=== PATIENT | female | born 1985 ===

== ENCOUNTER 2017-06-19 17:59 | Emergency (ER) | payer MEDICAID ==
[2017-06-19 18:49] VITALS: BMI 24.4
[2017-06-19 18:50] VITALS: TEMP 98.3
--- NOTE | 2017-06-19 20:07 | ED PDOC ---
Arrival/HPI - General Chief Complaint: Chest Pain Time Seen by Provider: 06/19/17 19:02 Historian: Patient - History of Present Illness Narrative History of Present Illness (Text): 06/19/17 19:52 32-year-old female with no past medical history presents today with a 2 day history of left-sided chest pain worse with deep inspiration. Patient states 4 days ago she returned from [place] and felt as if she was coming down with a cold. Patient states she had a slight sore throat and felt like she had chills. Patient states yesterday she developed a tightness in the left side of the chest that is nonradiating. Patient states the pain is worse with deep inspiration and with movement of the left arm. She denies dizziness or weakness. Denies headaches or blurred vision. Denies back pain. Denies abdominal pain. No nausea or vomiting. Patient denies a smoking history. Denies calf pain. pt denies cough. No other complaints. Time/Duration: Other (2 days) Past Medical History - Provider Review Nursing Documentation Reviewed: Yes - Travel History Have you recently traveled outside [place] w/in the past 3 mons?: No - Tetanus Immunization Tetanus Immunization: Unknown - Cardiac Hx Cardiac Disorders: No - Pulmonary Hx Respiratory Disorders: No - Neurological Hx Neurological Disorder: No - HEENT Hx HEENT Disorder: No - Renal Hx Renal Disorder: No - Endocrine/Metabolic Hx Hypothyroidism: Yes - Hematological/Oncological Hx Blood Disorders: No - Integumentary Hx Dermatological Disorder: No - Musculoskeletal/Rheumatological Hx Musculoskeletal Disorders: No - Gastrointestinal Hx Gastrointestinal Disorders: No - Genitourinary/Gynecological Hx Genitourinary Disorders: No - Psychiatric Hx Psychophysiologic Disorder: No Hx Anxiety: No Hx Substance Use: No - Surgical History Hx Section: Yes Family/Social History - Physician Review Nursing Documentation Reviewed: Yes Family/Social History: Unknown Family HX Smoking Status: Never Smoked Hx Alcohol Use: No Hx Substance Use: No Allergies/Home Meds Allergies/Adverse Reactions: Allergies No Known Allergies Allergy (Verified 06/19/17 18:50) Review of Systems - Review of Systems Constitutional: absent: Fatigue, Fevers ENT: Sore Throat, Sinus Congestion Respiratory: absent: SOB, Cough Cardiovascular: Chest Pain. absent: Palpitations Gastrointestinal: absent: Abdominal Pain, Nausea, Vomiting Genitourinary Female: absent: Dysuria Musculoskeletal: absent: Arthralgias Skin: absent: Rash, Pruritis Neurological: absent: Headache, Dizziness Psychiatric: absent: Anxiety, Depression Physical Exam Vital Signs Reviewed: Yes Vital Signs Temp Pulse Pulse Resp BP Pulse Ox 06/20/17 00:04 19 98 06/19/17 23:31 82 19 127/70 99 06/19/17 18:54 80 06/19/17 18:51 98.3 F 83 18 124/73 97 06/19/17 18:49 98.3 F 85 18 124/73 99 Temperature: Afebrile Blood Pressure: Normal Pulse: Regular Respiratory Rate: Normal Appearance: Positive for: Well-Appearing, Non-Toxic, Comfortable Pain Distress: None Mental Status: Positive for: Alert and Oriented X 3 - Systems Exam Head: Present: Atraumatic Conjunctiva: Present: Normal Ears: Present: Normal, NORMAL TM Mouth: Present: Moist Mucous Membranes. No: Drooling, Trismus, Normal Tounge, Normal Teeth Pharnyx: Present: Normal. No: ERYTHEMA, EXUDATE, TONSILS ENLARGED, Peritonsilar Swelling, Uvular Deviation, Muffled/Hoarse Voice Nose (External): Present: Atraumatic Nose (Internal): Present: Normal Inspection Neck: Present: Normal Range of Motion Respiratory/Chest: Present: Clear to Auscultation, Good Air Exchange, Tender to Palpation (+ ttp over anterior left chest wall; no edema, no erythema; no ecchymosis; no step offs or crepitus. ). No: Respiratory Distress, Accessory Muscle Use Cardiovascular: Present: Regular Rate and Rhythm, Normal S1, S2. No: Murmurs Abdomen: No: Tenderness, Distention, Rebound, Guarding Back: Present: Normal Inspection. No: CVA Tenderness, Midline Tenderness Upper Extremity: Present: Normal Inspection, Normal ROM Lower Extremity: Present: Normal Inspection, Normal ROM Neurological: Present: GCS=15 Skin: Present: Warm, Dry, Normal Color. No: Rashes Psychiatric: Present: Alert, Oriented x 3 Medical Decision Making ED Course and Treatment: 06/19/17 21:19 pt with palpable chest pain x 2 days. with uri symptoms. cbc; wnl cmp; wnl trop: wnl d dimer; wnl ekg; normal sinus rhythm at 75 bpm normal axis normal intervals no ST elevations cxr; no infiltrate, no effusion, no cardiomegaly rapid flu; negative pt given toradol for pain; pt reassessment; after toradol patient denies any pain; no sob. I discussed the results in depth with the patient stressed importance of follow- up with her primary care physician tomorrow. Advised follow-up with the plaster mechanic. Advised to immediately return if symptoms worsen or persist or if new concerning symptoms develop Patient verbalizes understanding of discharge instructions and need for immediate followup. all aspects of this case were discussed the attending of record. impression; chest pain, flu like symptoms increase fluids motrin every 6 hours as needed for pain/fever reduction tamiflu twice daily x 5 day follow up with the primary care physician tomorrow. Follow up with the plaster mechanic within the next 2 days. return if symptoms worsen,persist or if new symptoms develop. - Lab Interpretations Lab Results: 06/19/17 21:07 06/19/17 21:07 Lab Results 06/19/17 21:07: Urine Color Yellow, Urine Appearance Clear, Urine pH 7.5, Ur Specific [place] 1.020, Urine Protein Negative, Urine Glucose (UA) Negative, Urine Ketones Negative, Urine Blood Negative, Urine Nitrate Negative, Urine Bilirubin Negative, Urine Urobilinogen 0.2, Ur Leukocyte Esterase Negative 06/19/17 21:07: D-Dimer, Quantitative < 200 06/19/17 21:07: Influenza Typ A,B (EIA) Negative for flu a/b 06/19/17 21:07: WBC 8.3, RBC 4.21, Hgb 12.4, Hct 37.6, MCV 89.3, MCH 29.5, MCHC 33.0, RDW 13.7, Plt Count 318, MPV 11.8 H, Gran % 53.8, Lymph % (Auto) 33.7, [place] % (Auto) 10.4 H, Eos % (Auto) 1.9, Baso % (Auto) 0.2, Gran # 4.44, Lymph # (Auto) 2.8, [place] # (Auto) 0.9 H, Eos # (Auto) 0.2, Baso # (Auto) 0.02 06/19/17 21:07: Sodium 143, Potassium 4.4, Chloride 107, Carbon Dioxide 26, Anion Gap 14, BUN 10, Creatinine 0.7, Est GFR ( Amer) > 60, Est GFR (Non- Af Amer) > 60, Random Glucose 85, Calcium 9.4, Total Bilirubin 0.1 L, AST 45 H, ALT 57 H, Alkaline Phosphatase 95, Lactate Dehydrogenase 417, Total Creatine Kinase 88, Troponin I < 0.01, Total Protein 7.0, Albumin 3.9, Globulin 3.1, Albumin/Globulin Ratio 1.3 - RAD Interpretation Radiology Orders: 06/19/17 19:14 CHEST PORTABLE [RAD] Stat - Medication Orders Current Medication Orders: Discontinued Medications Ketorolac Tromethamine (Toradol) 30 mg IVP STAT STA Stop: 06/19/17 22:23 Last Admin: 06/19/17 22:26 Dose: 30 mg MAR Pain Assessment Document 06/19/17 22:26 [facility] (Rec: 06/19/17 22:[id number]) Pain Reassessment Is this a pain reassessment? No Sleep Is patient sleeping during reassessment? No Presence of Pain Presence of Pain Yes Pain Scale Used Pain Scale Used Numeric Location Pain Location Body Site Generalized Description Description Constant Intensity of Pain at present 7 Pain Behavior Facial Grimacing Aggravating Factors Changing Position Alleviating Factors/Management Position Change Techniques Alleviating Factors Medication IVP Administration Document 06/19/17 22:26 [facility] (Rec: 06/19/17 22:[id number]) Charges for Administration # of IVP Administrations 1 NGOZI Risk Score for UA/NSTEMI - NGOZI Risk Score Age > 64: NO 3 or more CAD Risk Factors: NO Known CAD (Stenosis greater than 50%): NO Aspirin use in past 7 days: NO Severe Angina: NO EKG ST changes greater than 0.5mm: NO Positive Cardiac Marker: NO NGOZI Score: 0 % risk at 14 days of: all cause mortality, new or recurrent OK, or severe recurrent ischemia requiring urgen revascularization: 5% Disposition/Present on Arrival - Present on Arrival Any Indicators Present on Arrival: No History of DVT/PE: No History of Uncontrolled Diabetes: No Urinary Catheter: No History of Decub. Ulcer: No History Surgical Site Infection Following: None - Disposition Have Diagnosis and Disposition been Completed?: Yes Diagnosis: Chest pain, Flu-like symptoms Disposition: HOME/ ROUTINE Disposition Time: 23:51 Patient Plan: Discharge Condition: GOOD Discharge Instructions (ExitCare): Chest Pain (ED) Additional Instructions: increase fluids motrin every 6 hours as needed for pain/fever reduction tamiflu twice daily x 5 day follow up with the primary care physician tomorrow. Follow up with the plaster mechanic within the next 2 days. return if symptoms worsen,persist or if new symptoms develop. Prescriptions: Oseltamivir [Tamiflu] 75 mg PO BID #10 cap Referrals: Tonja Goldstein DO [Primary Care Provider] - Follow up with primary Edward Ricketts MD [Staff Provider] - Follow up with primary Forms: [employer] (Green[place]ic), WORK NOTE
[2017-06-19 21:14] LABS: BASO # 0.02 K/mm3 (0.0-2.0); BASO % 0.2 % (0.0-3.0); EOS # 0.2 (0.0-0.7); EOS % 1.9 % (1.5-5.0); GRAN # 4.44 (1.4-6.5); GRAN % 53.8 % (50.0-68.0); HEMOGLOBIN 12.4 g/dL (12.0-16.0); LYMPH # 2.8 (1.2-3.4); LYMPH % 33.7 % (22.0-35.0); MEAN CELL VOLUME 89.3 fl (80.0-105.0); MEAN CORPUSCULAR HEMOGLOBIN 29.5 pg (25.0-35.0); MEAN PLATELET VOLUME 11.8 fl (7.0-11.0); MONO # 0.9 (0.1-0.6); MONO % 10.4 % (1.0-6.0); RBC 4.21 10^6/uL (3.5-6.1); RED CELL DISTRIBUTION WIDTH 13.7 % (11.5-14.5); WHITE BLOOD COUNT 8.3 10^3/ul (4.5-11.0)
[2017-06-19 21:18] LABS: PH,URINE 7.5 (4.7-8.0); URINE APPEARANCE CLEAR (CLEAR); URINE BILIRUBIN NEGATIVE (NEGATIVE); URINE BLOOD NEGATIVE (NEGATIVE); URINE COLOR YELLOW (YELLOW); URINE GLUCOSE (UA) NEGATIVE (NEGATIVE); URINE LEUKOCYTE ESTERASE NEGATIVE Leu/uL (NEGATIVE); URINE NITRATE NEGATIVE (NEGATIVE); URINE PROTEIN NEGATIVE mg/dL (<30 mg/dL); URINE UROBILINOGEN 0.2 E.U./dL (<1 E.U./dL)
[2017-06-19 21:24] LABS: ALB/GLOB RATIO 1.3 (1.1-1.8); ALBUMIN 3.9 g/dL (3.0-4.8); ALT/SGPT 57 U/L (7-56); AST/SGOT 45 U/L (14-36); BLOOD UREA NITROGEN 10 mg/dL (7-21); CALCIUM 9.4 mg/dL (8.4-10.5); GFR AFRICAN-AMERICAN > 60; GFR NON-AFRICAN AMERICAN > 60
[2017-06-19 21:35] LABS: TROPONIN I < 0.01 ng/mL
[2017-06-19 23:31] VITALS: BP 127/70; PULSE 82; RESP 19
[2017-06-20 00:05] VITALS: O2SAT 98
--- NOTE | 2017-06-20 09:35 | RAD ---
HISTORY: chest pain COMPARISON: No prior. FINDINGS: LUNGS: No active pulmonary disease. PLEURA: No significant pleural effusion identified, no pneumothorax apparent. CARDIOVASCULAR: Normal. OSSEOUS STRUCTURES: No significant abnormalities. VISUALIZED UPPER ABDOMEN: Normal. OTHER FINDINGS: None. IMPRESSION: No acute cardiopulmonary disease appreciated.
--- NOTE | 2017-06-20 10:33 | CARD ---
APPROVED REPORT EKG Measurement Heart [id number] <Conclusion> Normal sinus rhythm RVCD Normal ECG
== END 2017-06-20 00:05 | disposition home or self-care (01) ==
LOC: ED 17:59
DX: R07.9 Chest pain, unspecified (principal); J11.1 Influenza due to unidentified influenza virus with other respiratory manifestations
CPT/HCPCS: 71045; 80053; 81003; 82550; 83615; 84484; 85025; 85378; 87804; 93005; 96374; 99283; J1885